=== PATIENT | male | born 1965 | race Caucasian/White ===

== ENCOUNTER → 2017-07-31 | Outpatient (CLI) | payer BC ==
[~2017-07-31] VITALS: Ht 188 cm; Wt 115.7 kg
[~2017-07-31] MED LIST: AVAPRO300 MG PO; COUMADIN10 MG PO; COUMADIN2.5 MG PO; GLUCOPHAGE XR750 MG PO; TENORMIN25 MG PO
[2017-07-31 08:54] LABS: INTER. NORMALIZED RATIO 1.4
[2017-07-31 09:10] LABS: CHLORIDE 103 MEQ/L (99-109); CREATININE 0.6 MG/DL (0.6-1.3); GFR ESTIMATE (CALCULATED) > 59 mL/min/ (58.99-99999); GLUCOSE 99 mg/dL (70-99); POTASSIUM 3.8 MEQ/L (3.7-5.4); SODIUM 139 MEQ/L (136-147); UREA NITROGEN (BUN) 10 mg/dL (9-23)
== END | disposition home or self-care (01) ==
LOC: AMB 07:57
PROVIDERS: Anesthesiology; Internal Medicine
DX: Z12.11 Encounter for screening for malignant neoplasm of colon (principal); D12.0 Benign neoplasm of cecum; D12.2 Benign neoplasm of ascending colon; D12.3 Benign neoplasm of transverse colon; Z80.0 Family history of malignant neoplasm of digestive organs; I10 Essential (primary) hypertension; Q87.418 Marfan syndrome with other cardiovascular manifestations; Z95.4 Presence of other heart-valve replacement; Z79.01 Long term (current) use of anticoagulants; Z79.84 Long term (current) use of oral hypoglycemic drugs; Z91.048 Other nonmedicinal substance allergy status
CPT/HCPCS: 80048; 82948; 85610; 88305; 93005